=== PATIENT | male | born 1985 | race Caucasian/White ===

== ENCOUNTER 2019-10-09 22:30 | Emergency (ER) | payer OTHER ==
[2019-10-09] MEDS ORDERED: SODIUM CHLORIDE 0.9% 1,000 ML IV STA (23:09)
[2019-10-09] MEDS ORDERED: LABETALOL 5 MG/ML VIAL MDV IVP STA (23:12)
--- NOTE | 2019-10-09 23:12 | ED ---
Dizziness HPI - General Chief Complaint: Dizziness Stated Complaint: Dizziness Time Seen by Provider: 10/09/19 22:49 Source: patient, RN notes reviewed, old records reviewed Mode of arrival: ambulatory Limitations: no limitations - History of Present Illness Initial Comments: This is a 33-year-old male does admit to some mild increase in anxiety coming in with episodes of palpitations racing heart shortness of breath and near-syncope at home. Multiple events in the last 2 days. Currently patient is a symptomatically data available [facility]. No recent travel history sick contacts no change in medications denying drug throughout cough. 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 ROS Other: All systems not noted in ROS Statement are negative. Past Medical History Past Medical History: No Reported History History of Any Multi-Drug Resistant Organisms: None Reported Past Surgical History: No Surgical Hx Reported Past Psychological History: Anxiety Smoking Status: Never smoker Past Alcohol Use History: None Reported Past Drug Use History: Marijuana General Exam Limitations: no limitations General appearance: alert, in no apparent distress Head exam: Present: atraumatic, normocephalic, normal inspection Eye exam: Present: normal appearance, PERRL, EOMI. Absent: scleral icterus, conjunctival injection, periorbital swelling ENT exam: Present: normal exam, mucous membranes moist Neck exam: Present: normal inspection. Absent: tenderness, meningismus, lymphadenopathy Respiratory exam: Present: normal lung sounds bilaterally. Absent: respiratory distress, wheezes, rales, rhonchi, stridor Cardiovascular Exam: Present: regular rate, normal rhythm, normal heart sounds. Absent: systolic murmur, diastolic murmur, rubs, gallop, clicks GI/Abdominal exam: Present: soft, normal bowel sounds. Absent: distended, tenderness, guarding, rebound, rigid Extremities exam: Present: normal inspection, full ROM, normal capillary refill. Absent: tenderness, pedal edema, joint swelling, calf tenderness Back exam: Present: normal inspection Neurological exam: Present: alert, oriented X3, CN II-XII intact Psychiatric exam: Present: normal affect, normal mood Skin exam: Present: warm, dry, intact, normal color. Absent: rash Course Vital Signs 10/09/19 10/09/19 10/09/19 22:36 23:35 23:52 Temperature 97.9 F Pulse Rate 83 86 62 Respiratory 20 18 20 Rate Blood Pressure 197/112 169/97 115/75 O2 Sat by Pulse 99 100 97 Oximetry 10/10/19 00:30 Temperature Pulse Rate 75 Respiratory 20 Rate Blood Pressure 135/92 O2 Sat by Pulse 98 Oximetry EKG Findings - EKG Comments: EKG Findings:: EKG shows sinus a 72, NV 176, QRS 104, QTc 413 Medical Decision Making - Lab Data Result diagrams: 10/09/19 23:52 10/09/19 23:52 Lab Results 10/09/19 10/09/19 10/09/19 Range/Units 23:52 23:52 23:52 WBC 10.4 (3.8-10.6) k/uL RBC 4.84 (4.30-5.90) m/uL Hgb 14.3 (13.0-17.5) gm/dL Hct 40.8 (39.0-53.0) % MCV 84.3 (80.0-100.0) fL MCH 29.5 (25.0-35.0) pg MCHC 34.9 (31.0-37.0) g/dL RDW 11.8 (11.5-15.5) % Plt Count 202 (150-450) k/uL Neutrophils % 80 % Lymphocytes % 13 % Monocytes % 4 % Eosinophils % 0 % Basophils % 0 % Neutrophils # 8.4 H (1.3-7.7) k/uL Lymphocytes # 1.4 (1.0-4.8) k/uL Monocytes # 0.4 (0-1.0) k/uL Eosinophils # 0.0 (0-0.7) k/uL Basophils # 0.0 (0-0.2) k/uL PT (9.0-12.0) sec INR (<1.2) APTT (22.0-30.0) sec Sodium 138 (137-145) mmol/L Potassium 4.3 (3.5-5.1) mmol/L Chloride 101 (98-107) mmol/L Carbon Dioxide 27 (22-30) mmol/L Anion Gap 10 mmol/L BUN 14 (9-20) mg/dL Creatinine 0.92 (0.66-1.25) mg/dL Est GFR (CKD-EPI)AfAm >90 (>60 ml/min/1.73 sqM) Est GFR (CKD-EPI)NonAf >90 (>60 ml/min/1.73 sqM) Glucose 150 H (74-99) mg/dL Calcium 10.2 (8.4-10.2) mg/dL Phosphorus 2.7 (2.5-4.5) mg/dL Magnesium 1.9 (1.6-2.3) mg/dL Total Bilirubin 0.8 (0.2-1.3) mg/dL AST 114 H (17-59) U/L ALT 211 H (4-49) U/L Alkaline Phosphatase 99 (38-126) U/L Troponin I (0.000-0.034) ng/mL NT-Pro-B Natriuret Pep 32 pg/mL Total Protein 7.9 (6.3-8.2) g/dL Albumin 4.9 (3.5-5.0) g/dL TSH 3.090 (0.465-4.680) mIU/L 10/09/19 10/09/19 Range/Units 23:52 23:52 WBC (3.8-10.6) k/uL RBC (4.30-5.90) m/uL Hgb (13.0-17.5) gm/dL Hct (39.0-53.0) % MCV (80.0-100.0) fL MCH (25.0-35.0) pg MCHC (31.0-37.0) g/dL RDW (11.5-15.5) % Plt Count (150-450) k/uL Neutrophils % % Lymphocytes % % Monocytes % % Eosinophils % % Basophils % % Neutrophils # (1.3-7.7) k/uL Lymphocytes # (1.0-4.8) k/uL Monocytes # (0-1.0) k/uL Eosinophils # (0-0.7) k/uL Basophils # (0-0.2) k/uL PT 10.4 (9.0-12.0) sec INR 1.0 (<1.2) APTT 20.9 L (22.0-30.0) sec Sodium (137-145) mmol/L Potassium (3.5-5.1) mmol/L Chloride (98-107) mmol/L Carbon Dioxide (22-30) mmol/L Anion Gap mmol/L BUN (9-20) mg/dL Creatinine (0.66-1.25) mg/dL Est GFR (CKD-EPI)AfAm (>60 ml/min/1.73 sqM) Est GFR (CKD-EPI)NonAf (>60 ml/min/1.73 sqM) Glucose (74-99) mg/dL Calcium (8.4-10.2) mg/dL Phosphorus (2.5-4.5) mg/dL Magnesium (1.6-2.3) mg/dL Total Bilirubin (0.2-1.3) mg/dL AST (17-59) U/L ALT (4-49) U/L Alkaline Phosphatase (38-126) U/L Troponin I <0.012 (0.000-0.034) ng/mL NT-Pro-B Natriuret Pep pg/mL Total Protein (6.3-8.2) g/dL Albumin (3.5-5.0) g/dL TSH (0.465-4.680) mIU/L Disposition Clinical Impression: Anxiety, Near syncope, Palpitations Disposition: HOME SELF-CARE Condition: Good Instructions (If sedation given, give patient instructions): Dizziness (ED), Near Syncope (ED) Is patient prescribed a controlled substance at d/c from ED?: No Referrals: None,Stated [Primary Care Provider] - 1-2 days
[2019-10-10 00:08] LABS: Basophils % (A) 0 %; Eosinophils % (A) 0 %; HCT 40.8 % (39.0-53.0); HGB 14.3 gm/dL (13.0-17.5); Lymphocytes # (A) 1.4 k/uL (1.0-4.8); Lymphocytes % (A) 13 %; MCH 29.5 pg (25.0-35.0); MCHC 34.9 g/dL (31.0-37.0); MCV 84.3 fL (80.0-100.0); Mean Platelet Volume 8.1; Monocytes # (A) 0.4 k/uL (0-1.0); Monocytes % (A) 4 %; Neutrophils # (A) 8.4 k/uL (1.3-7.7); Neutrophils % (A) 80 %; Platelet Count 202 k/uL (150-450); RBC 4.84 m/uL (4.30-5.90); RDW 11.8 % (11.5-15.5); WBC 10.4 k/uL (3.8-10.6)
[2019-10-10 00:17] LABS: ALT 211 U/L (4-49); AST 114 U/L (17-59); African American GFR (CKD) >90 (>60 ml/min/1.73 sqM); Albumin 4.9 g/dL (3.5-5.0); Alkaline Phosphatase 99 U/L (38-126); Anion Gap 10 mmol/L; Blood Urea Nitrogen 14 mg/dL (9-20); Calcium 10.2 mg/dL (8.4-10.2); Carbon Dioxide 27 mmol/L (22-30); Chloride 101 mmol/L (98-107); Glucose 150 mg/dL (74-99); Magnesium 1.9 mg/dL (1.6-2.3); Non-African American GFR(CKD) >90 (>60 ml/min/1.73 sqM); Phosphorus 2.7 mg/dL (2.5-4.5); Potassium 4.3 mmol/L (3.5-5.1); Sodium 138 mmol/L (137-145); Total Bilirubin 0.8 mg/dL (0.2-1.3); Total Protein 7.9 g/dL (6.3-8.2)
[2019-10-10 00:23] LABS: Prothrombin Time 10.4 sec (9.0-12.0)
--- NOTE | 2019-10-10 00:45 | CT ---
EXAMINATION TYPE: CT angio chest DATE OF EXAM: 10/10/2019 COMPARISON: None HISTORY: Pain, R/O PE CT DLP: 749.70 mGycm Automated exposure control for dose reduction was used. CONTRAST: Performed with IV Contrast, patient injected with 100 mL of Isovue 370. Multiple axial sections were obtained from the thoracic inlet to the diaphragm with intravenous contr ast. There are 3-D post processed images. FINDINGS: Mediastinum is normal. Thoracic aorta is intact. There is no aneurysm or dissection. There are no hil ar masses. Heart size is normal. There is no pericardial effusion. There is no pleural effusion. The lungs are clear of consolidation. There is no evidence of a pulmonary mass. There is normal contrast opacification of the pulmonary arteries. There are no filling defects. The ribs appear intact. Thoracic spine is intact. Sternum is intact. IMPRESSION: Negative exam. No evidence of pulmonary embolism.
[2019-10-10 00:47] LABS: Partial Thromboplastin Time 20.9 sec (22.0-30.0)
--- NOTE | 2019-10-10 01:05 | CT ---
EXAMINATION TYPE: CT abdomen pelvis w con DATE OF EXAM: 10/10/2019 COMPARISON: None HISTORY: Abd Pain CT DLP: 1431.60 mGycm Automated exposure control for dose reduction was used. CONTRAST: Performed with IV Contrast, patient injected with 100 mL of Isovue 370. Lung bases are clear of consolidation. There is no pleural effusion. Heart size is normal. Liver spleen pancreas gallbladder appear normal. Bile ducts are not dilated. Stomach is intact. There is no adrenal mass. Kidneys show satisfactory contrast opacification. There is no hydronephrosis. Ur eters are not dilated. There is no retroperitoneal adenopathy. Bladder distends smoothly. There is no inguinal hernia. There is no free fluid in the pelvis. There is no sign of a bowel obstruction. Ther e is no mesenteric edema. There is no ascites or free air. There is some fatty infiltration of the ap pendix. I see no sign of appendicitis. Appendix measures 8 mm. There is no evidence of free air. Lumbar vertebra have fairly normal alignment. There is L5 spondylolysis with very minimal first-degre e L5-S1 spondylolisthesis. Bony pelvis appears intact. IMPRESSION: No sign of acute abdomen and pelvis. L5 spondylolysis with minimal spondylolisthesis.
[2019-10-10 01:27] LABS: Appearance,Urine Clear (Clear); Color,Urine Yellow; Protein,Urine Negative (Negative); Specific Gravity,Urine 1.005 (1.001-1.035)
[2019-10-10 01:28] LABS: Bilirubin,Urine Negative (Negative); Blood,Urine Negative (Negative); Glucose,Urine (UA) Negative (Negative); Ketones,Urine Negative (Negative); Leukocyte Esterase,Urine Negative (Negative); Nitrite,Urine Negative (Negative); Urobilinogen,Urine <2.0 mg/dL (<2.0)
[2019-10-10 01:38] VITALS: BP 147/90; PULSE 79; RESP 18; TEMP 97.5
== END 2019-10-10 01:39 | disposition home or self-care (01) ==
LOC: EC 22:30
DX: F41.9 Anxiety disorder, unspecified (principal); R55 Syncope and collapse; R00.2 Palpitations; R42 Dizziness and giddiness; Z53.8 Procedure and treatment not carried out for other reasons
CPT/HCPCS: 36415; 93005; 83880; 80053; 83735; 84100; 84443; 84484; 85025; 85610; 85730; 81003; 71275; 74177; 99285; 96360; 96361; Q9967

== ENCOUNTER 2019-11-12 22:22 | Emergency (ER) | payer OTHER ==
[2019-11-12 22:27] VITALS: TEMP 98
--- NOTE | 2019-11-12 22:43 | ED ---
General Adult HPI - General Chief complaint: Anxiety Stated complaint: Anxiety Time Seen by Provider: 11/12/19 22:32 Source: patient Mode of arrival: ambulatory Limitations: no limitations - History of Present Illness Initial comments: Patient presents the ED complaining of having intermittent rapid heart palpitations for the past couple of months. Patient states that he was recently seen in the hospital for these symptoms, and he was told that he may having anxiety. Patient states that his palpitations returned again earlier tonight, and so he decided to come to the ED. Patient states that he has also had associated lightheadedness. Patient admits to having mild palpitations currently, but he denies having any lightheadedness or dizziness currently. Patient denies having any pain, fever or chills, headache, focal neuro deficit, chest pain, dyspnea, cough or cold symptoms, syncope, nausea/vomiting/diaphoresis, abdominal pain, diarrhea, urinary symptoms, leg or calf swelling or pain, or any other symptoms or complaints. Patient admits to drinking "2 shots" of alcohol earlier today, and he also admits to smoking marijuana earlier today. Patient denies any other illicit drug use. - Related Data Allergies Allergy/AdvReac Type Severity Reaction Status Date / Time No Known Allergies Allergy Verified 11/12/19 22:23 Review of Systems ROS Statement: Those systems with pertinent positive or pertinent negative responses have been documented in the HPI. ROS Other: All systems not noted in ROS Statement are negative. Past Medical History Past Medical History: No Reported History History of Any Multi-Drug Resistant Organisms: None Reported Past Surgical History: No Surgical Hx Reported Past Psychological History: Anxiety Smoking Status: Never smoker Past Alcohol Use History: None Reported Past Drug Use History: Marijuana General Exam Limitations: no limitations General appearance: alert, in no apparent distress Head exam: Present: atraumatic, normocephalic Eye exam: Present: normal appearance, PERRL, EOMI ENT exam: Present: mucous membranes moist Neck exam: Present: other (Trachea is in midline) Respiratory exam: Present: normal lung sounds bilaterally. Absent: respiratory distress, wheezes, rales, rhonchi Cardiovascular Exam: Present: regular rate, normal rhythm, normal heart sounds, other (Normal radial pulses bilaterally) GI/Abdominal exam: Present: soft. Absent: distended, tenderness Extremities exam: Absent: tenderness, pedal edema, calf tenderness Neurological exam: Present: alert, oriented X3, CN II-XII intact. Absent: motor sensory deficit Psychiatric exam: Present: normal affect, normal mood Skin exam: Present: warm, dry, intact, normal color Course Vital Signs 11/12/19 11/12/19 11/12/19 22:23 22:58 23:00 Temperature 98 F Pulse Rate 101 H 69 71 Respiratory 18 20 Rate Blood Pressure 188/93 155/93 O2 Sat by Pulse 99 97 Oximetry 11/12/19 11/12/19 11/12/19 23:10 23:20 23:30 Temperature Pulse Rate 86 74 71 Respiratory Rate Blood Pressure 148/98 148/98 148/98 O2 Sat by Pulse 99 96 97 Oximetry 11/12/19 11/12/19 11/13/19 23:40 23:50 00:00 Temperature Pulse Rate 73 74 73 Respiratory Rate Blood Pressure 148/98 148/98 148/98 O2 Sat by Pulse 98 97 97 Oximetry - Reevaluation(s) Reevaluation #1: 11/13/19 01:01 Patient denies having any symptoms at this time. Patient remains in normal sinus rhythm on the line palletizer. Patient remains alert and breathing comfortably with a normal room air oxygen saturation. Patient is aware of his test results, and he feels comfortable going home at this time. EKG Findings - EKG Comments: EKG Findings:: Normal sinus rhythm, ventricular rate of 85 bpm, no ectopy, no rmal MI and QRS intervals, normal QT interval, normal axis, no ST or T-wave abnormality Medical Decision Making - Medical Decision Making Patient's labs, EKG and chest x-ray are fairly unremarkable. Patient's vital signs are reassuring. I do not suspect an emergent medical condition. Patient is aware of his test results, and he feels comfortable going home at this time. He was counseled about palpitations and dizziness. He was clearly explained return and follow-up instructions, and he feels comfortable with this plan. He was instructed to return to the ED should he develop any significant pain, a fever, chest pain, shortness of breath, feeling dizzy or faint, vomiting, or new or worsening symptoms. He was also instructed to follow up closely with his primary care provider. He feels comfortable with this plan. - Lab Data Result diagrams: 11/12/19 22:50 11/12/19 22:50 Lab Results 11/12/19 11/12/19 11/12/19 Range/Units 22:50 22:50 22:50 WBC 10.8 H (3.8-10.6) k/uL RBC 5.07 (4.30-5.90) m/uL Hgb 14.9 (13.0-17.5) gm/dL Hct 42.1 (39.0-53.0) % MCV 83.1 (80.0-100.0) fL MCH 29.4 (25.0-35.0) pg MCHC 35.3 (31.0-37.0) g/dL RDW 11.8 (11.5-15.5) % Plt Count 194 (150-450) k/uL Neutrophils % 71 % Lymphocytes % 21 % Monocytes % 6 % Eosinophils % 1 % Basophils % 0 % Neutrophils # 7.6 (1.3-7.7) k/uL Lymphocytes # 2.2 (1.0-4.8) k/uL Monocytes # 0.6 (0-1.0) k/uL Eosinophils # 0.1 (0-0.7) k/uL Basophils # 0.0 (0-0.2) k/uL Sodium 141 (137-145) mmol/L Potassium 3.3 L (3.5-5.1) mmol/L Chloride 100 (98-107) mmol/L Carbon Dioxide 26 (22-30) mmol/L Anion Gap 15 mmol/L BUN 10 (9-20) mg/dL Creatinine 0.97 (0.66-1.25) mg/dL Est GFR (CKD-EPI)AfAm >90 (>60 ml/min/1.73 sqM) Est GFR (CKD-EPI)NonAf >90 (>60 ml/min/1.73 sqM) Glucose 158 H (74-99) mg/dL Calcium 10.0 (8.4-10.2) mg/dL Magnesium 1.4 L (1.6-2.3) mg/dL Total Bilirubin 0.8 (0.2-1.3) mg/dL AST 73 H (17-59) U/L ALT 61 H (4-49) U/L Alkaline Phosphatase 98 (38-126) U/L Troponin I (0.000-0.034) ng/mL Total Protein 8.6 H (6.3-8.2) g/dL Albumin 5.2 H (3.5-5.0) g/dL TSH 4.250 (0.465-4.680) mIU/L Urine Opiates Screen Not Detected (NotDetected) Ur Oxycodone Screen Not Detected (NotDetected) Urine Methadone Screen Not Detected (NotDetected) Ur Propoxyphene Screen Not Detected (NotDetected) Ur Barbiturates Screen Not Detected (NotDetected) U Tricyclic Antidepress Not Detected (NotDetected) Ur Phencyclidine Scrn Not Detected (NotDetected) Ur Amphetamines Screen Not Detected (NotDetected) U Methamphetamines Scrn Not Detected (NotDetected) U Benzodiazepines Scrn Not Detected (NotDetected) Urine Cocaine Screen Not Detected (NotDetected) U Marijuana (THC) Screen Detected H (NotDetected) 11/12/19 Range/Units 22:50 WBC (3.8-10.6) k/uL RBC (4.30-5.90) m/uL Hgb (13.0-17.5) gm/dL Hct (39.0-53.0) % MCV (80.0-100.0) fL MCH (25.0-35.0) pg MCHC (31.0-37.0) g/dL RDW (11.5-15.5) % Plt Count (150-450) k/uL Neutrophils % % Lymphocytes % % Monocytes % % Eosinophils % % Basophils % % Neutrophils # (1.3-7.7) k/uL Lymphocytes # (1.0-4.8) k/uL Monocytes # (0-1.0) k/uL Eosinophils # (0-0.7) k/uL Basophils # (0-0.2) k/uL Sodium (137-145) mmol/L Potassium (3.5-5.1) mmol/L Chloride (98-107) mmol/L Carbon Dioxide (22-30) mmol/L Anion Gap mmol/L BUN (9-20) mg/dL Creatinine (0.66-1.25) mg/dL Est GFR (CKD-EPI)AfAm (>60 ml/min/1.73 sqM) Est GFR (CKD-EPI)NonAf (>60 ml/min/1.73 sqM) Glucose (74-99) mg/dL Calcium (8.4-10.2) mg/dL Magnesium (1.6-2.3) mg/dL Total Bilirubin (0.2-1.3) mg/dL AST (17-59) U/L ALT (4-49) U/L Alkaline Phosphatase (38-126) U/L Troponin I <0.012 (0.000-0.034) ng/mL Total Protein (6.3-8.2) g/dL Albumin (3.5-5.0) g/dL TSH (0.465-4.680) mIU/L Urine Opiates Screen (NotDetected) Ur Oxycodone Screen (NotDetected) Urine Methadone Screen (NotDetected) Ur Propoxyphene Screen (NotDetected) Ur Barbiturates Screen (NotDetected) U Tricyclic Antidepress (NotDetected) Ur Phencyclidine Scrn (NotDetected) Ur Amphetamines Screen (NotDetected) U Methamphetamines Scrn (NotDetected) U Benzodiazepines Scrn (NotDetected) Urine Cocaine Screen (NotDetected) U Marijuana (THC) Screen (NotDetected) - Radiology Data Radiology results: image reviewed (Chest x-ray is negative) Disposition Clinical Impression: Palpitations Disposition: HOME SELF-CARE Condition: Stable Instructions (If sedation given, give patient instructions): Heart Palpitations (ED), Lightheadedness (ED) Additional Instructions: Return to the ER immediately should you develop any significant pain, a fever, chest pain, shortness of breath, feeling dizzy or faint, vomiting, or new or worsening symptoms. Follow up closely with your primary care provider. Is patient prescribed a controlled substance at d/c from ED?: No Referrals: None,Stated [Primary Care Provider] - 1-2 days Nisreen Borges MD [REFERRING] - 1-2 days Time of Disposition: 01:06
[2019-11-12 23:03] VITALS: RESP 20
[2019-11-12 23:16] LABS: Basophils % (A) 0 %; Eosinophils # (A) 0.1 k/uL (0-0.7); Eosinophils % (A) 1 %; HCT 42.1 % (39.0-53.0); HGB 14.9 gm/dL (13.0-17.5); Lymphocytes # (A) 2.2 k/uL (1.0-4.8); Lymphocytes % (A) 21 %; MCH 29.4 pg (25.0-35.0); MCHC 35.3 g/dL (31.0-37.0); MCV 83.1 fL (80.0-100.0); Mean Platelet Volume 7.8; Monocytes # (A) 0.6 k/uL (0-1.0); Monocytes % (A) 6 %; Neutrophils # (A) 7.6 k/uL (1.3-7.7); Neutrophils % (A) 71 %; Platelet Count 194 k/uL (150-450); RBC 5.07 m/uL (4.30-5.90); RDW 11.8 % (11.5-15.5); WBC 10.8 k/uL (3.8-10.6)
[2019-11-12 23:27] LABS: ALT 61 U/L (4-49); AST 73 U/L (17-59); African American GFR (CKD) >90 (>60 ml/min/1.73 sqM); Albumin 5.2 g/dL (3.5-5.0); Alkaline Phosphatase 98 U/L (38-126); Anion Gap 15 mmol/L; Blood Urea Nitrogen 10 mg/dL (9-20); Carbon Dioxide 26 mmol/L (22-30); Chloride 100 mmol/L (98-107); Glucose 158 mg/dL (74-99); Magnesium 1.4 mg/dL (1.6-2.3); Non-African American GFR(CKD) >90 (>60 ml/min/1.73 sqM); Potassium 3.3 mmol/L (3.5-5.1); Sodium 141 mmol/L (137-145); Total Bilirubin 0.8 mg/dL (0.2-1.3); Total Protein 8.6 g/dL (6.3-8.2)
[2019-11-12 23:37] LABS: Amphetamine Screen,Urine Not Detected (NotDetected); Barbiturate Screen,Urine Not Detected (NotDetected); Benzodiazepines Screen,Urine Not Detected (NotDetected); Cocaine Screen,Urine Not Detected (NotDetected); Methadone Screen, Urine Not Detected (NotDetected); Opiate Screen,Urine Not Detected (NotDetected); Oxycodone Screen, Urine Not Detected (NotDetected); Phencyclidine Screen,Urine Not Detected (NotDetected); Tricyclic Antidepressant,Urine Not Detected (NotDetected); Urn Cannabinoid Scrn Detected (NotDetected)
[2019-11-13 01:04] VITALS: BP 151/95; PULSE 83
--- NOTE | 2019-11-13 01:21 | XR ---
EXAMINATION TYPE: XR chest 2V DATE OF EXAM: 11/13/2019 COMPARISON: NONE HISTORY: palpitations TECHNIQUE: FINDINGS: heart and mediastinum normal. Lungs clear. Diaphragm normal. IMPRESSION: Normal chest.
== END 2019-11-13 01:17 | disposition home or self-care (01) ==
LOC: EC 22:22
DX: R00.2 Palpitations (principal); R42 Dizziness and giddiness
CPT/HCPCS: 36415; 71046; 80053; 80306; 83735; 84443; 84484; 85025; 99284

== ENCOUNTER 2021-12-25 18:40 | Emergency (ER) | payer OTHER ==
[2021-12-25 19:02] VITALS: TEMP 98.6
[2021-12-25] MEDS ORDERED: SODIUM CHLORIDE 0.9% 1,000 ML IV ONE (19:45)
[2021-12-25] MEDS ORDERED: LABETALOL SYRINGE 5 MG/ML IVP STA (19:46)
--- NOTE | 2021-12-25 19:51 | ED ---
General Adult HPI - General Chief complaint: Arrhythmia/Palpitations Stated complaint: palpitations Time Seen by Provider: 12/25/21 19:37 Source: patient, RN notes reviewed Mode of arrival: ambulatory Limitations: no limitations - History of Present Illness Initial comments: This is a pleasant 36-year-old male comes back to the ER for recurrent palpitations and intermittent lightheadedness which she's had for the past few months. Patient has been seen several times for this. Patient states that symptoms seem to be worse today. Patient states he had some lightheadedness. His blood pressures also been labile. Patient has yet have a primary care physician. Patient admits to drinking about a fifth of alcohol yesterday. He states he did this to calm his symptoms. Patient also took one of his aunts lorazepam tablets. Patient admits to smoking marijuana but denies any other illicit drug abuse. Patient is also taking a stimulant medication/supplement which she states is supposed to give him focus energy. Patient admits to occa sionally drinking and he drinks and caffeine as well. Patient denies any chest pain. Complaining of palpitations. No headache, no fever or chills, no changes in vision or hearing, no sore throat or difficulty with speech, no neck pain, no chest pain or shortness of breath, no abdominal pain, no nausea or vomiting, no changes in urination or bowel movements, no numbness or tingling, no extremity pain, no skin rashes or lesions. - Related Data Previous Rx's Medication Instructions Recorded Metoprolol Tartrate [Lopressor] 12.5 mg PO BID 30 Days #60 tablet 12/25/21 Allergies Allergy/AdvReac Type Severity Reaction Status Date / Time No Known Allergies Allergy Verified 12/25/21 19:03 Review of Systems ROS Statement: Those systems with pertinent positive or pertinent negative responses have been documented in the HPI. ROS Other: All systems not noted in ROS Statement are negative. Past Medical History Past Medical History: No Reported History History of Any Multi-Drug Resistant Organisms: None Reported Past Surgical History: No Surgical Hx Reported Past Psychological History: Anxiety Smoking Status: Never smoker Past Alcohol Use History: None Reported Past Drug Use History: Marijuana General Exam Limitations: no limitations General appearance: alert, in no apparent distress Head exam: Present: atraumatic, normocephalic, normal inspection Eye exam: Present: normal appearance, PERRL, EOMI. Absent: scleral icterus, conjunctival injection, periorbital swelling ENT exam: Present: normal exam, normal oropharynx, mucous membranes dry, mucous membranes moist Neck exam: Present: normal inspection. Absent: tenderness, meningismus, lymphadenopathy Respiratory exam: Present: normal lung sounds bilaterally. Absent: respiratory distress, wheezes, rales, rhonchi, stridor Cardiovascular Exam: Present: regular rate, normal rhythm, normal heart sounds. Absent: systolic murmur, diastolic murmur, rubs, gallop, clicks GI/Abdominal exam: Present: soft, normal bowel sounds. Absent: distended, tenderness, guarding, rebound, rigid Extremities exam: Present: normal inspection, full ROM, normal capillary refill. Absent: tenderness, pedal edema, joint swelling, calf tenderness Back exam: Present: normal inspection, rash noted. Absent: full ROM, tenderness, paraspinal tenderness Neurological exam: Present: alert, oriented X3, CN II-XII intact. Absent: normal gait, abnormal gait, reflexes normal Psychiatric exam: Present: normal affect, normal mood, anxious. Absent: depres sed, agitated, flat affect, manic, homicidal ideation Skin exam: Present: warm, dry, intact, normal color. Absent: rash Course Vital Signs 12/25/21 12/25/21 19:00 21:23 Temperature 98.6 F Pulse Rate 102 H 78 Respiratory 18 16 Rate Blood Pressure 181/105 152/105 O2 Sat by Pulse 99 100 Oximetry - Reevaluation(s) Reevaluation #1: 12/25/21 21:48 Medical record is reviewed Symptoms are improved here in the emergency department Patient is informed of results and questions answered Patient in no distress EKG Findings - EKG Comments: EKG Findings:: EKG 1917. ED attending physician reveals sinus rhythm with evidence of moderate interventricular conduction delay with a QRS duration of 113 ms. Other intervals are normal. Normal axis. No acute ST or T-wave changes. When compared to the previous study from October 2019, there is no significant change. Medical Decision Making - Medical Decision Making Patient presenting with recurrent palpitations. Patient admits to drinking a fifth of alcohol yesterday. This does raise a suspicion of possible holiday heart syndrome related to binge drinking. Patient's palpitations are recurrent and were related to alcohol use last time as well as I reviewed the chart. Patient presents with recurrent palpitations, recurrent hypertension the patient admits to binge alcohol drinking. Had a long discussion with patient regarding avoidance of alcohol binge drinking as well as increased caffeine use. I'm going to place the patient on a low-dose beta javier and given follow-up with a primary care physician. Patient counseled on treatment plan. Patient voiced understanding. He concurs with this plan. All questions answered. Patient was told to return to the ER for any signs or symptoms worsen. Told to return immediately if any other problems arise. All questions answered. Treatment plan discussed. Patient in agreement Every effort has been made to ensure accuracy of this dictation. However, due to the limitations of electronic medical records and dictation devices, errors in charting still occur. Supervising physicians Dr. Guardado - Lab Data Result diagrams: 12/25/21 19:56 12/25/21 19:56 Lab Results 12/25/21 12/25/21 12/25/21 Range/Units 19:56 19:56 19:56 WBC 8.5 (3.8-10.6) k/uL RBC 5.21 (4.30-5.90) m/uL Hgb 15.8 (13.0-17.5) gm/dL Hct 45.1 (39.0-53.0) % MCV 86.7 (80.0-100.0) fL MCH 30.4 (25.0-35.0) pg MCHC 35.1 (31.0-37.0) g/dL RDW 12.6 (11.5-15.5) % Plt Count 233 (150-450) k/uL MPV 7.9 Neutrophils % 70 % Lymphocytes % 21 % Monocytes % 6 % Eosinophils % 0 % Basophils % 0 % Neutrophils # 5.9 (1.3-7.7) k/uL Lymphocytes # 1.8 (1.0-4.8) k/uL Monocytes # 0.5 (0-1.0) k/uL Eosinophils # 0.0 (0-0.7) k/uL Basophils # 0.0 (0-0.2) k/uL PT (9.0-12.0) sec INR (<1.2) APTT (22.0-30.0) sec Sodium 141 (137-145) mmol/L Potassium 4.3 (3.5-5.1) mmol/L Chloride 105 (98-107) mmol/L Carbon Dioxide 21 L (22-30) mmol/L Anion Gap 15 mmol/L BUN 10 (9-20) mg/dL Creatinine 0.88 (0.66-1.25) mg/dL Est GFR (CKD-EPI)AfAm >90 (>60 ml/min/1.73 sqM) Est GFR (CKD-EPI)NonAf >90 (>60 ml/min/1.73 sqM) Glucose 130 H (74-99) mg/dL Calcium 9.8 (8.4-10.2) mg/dL Magnesium 1.6 (1.6-2.3) mg/dL Total Bilirubin 1.1 (0.2-1.3) mg/dL AST 66 H (17-59) U/L ALT 56 H (4-49) U/L Alkaline Phosphatase 83 (38-126) U/L Troponin I <0.012 (0.000-0.034) ng/mL Total Protein 9.3 H (6.3-8.2) g/dL Albumin 5.3 H (3.5-5.0) g/dL TSH 2.030 (0.465-4.680) mIU/L Urine Opiates Screen (NotDetected) Ur Oxycodone Screen (NotDetected) Urine Methadone Screen (NotDetected) Ur Propoxyphene Screen (NotDetected) Ur Barbiturates Screen (NotDetected) U Tricyclic Antidepress (NotDetected) Ur Phencyclidine Scrn (NotDetected) Ur Amphetamines Screen (NotDetected) U Methamphetamines Scrn (NotDetected) U Benzodiazepines Scrn (NotDetected) Urine Cocaine Screen (NotDetected) U Marijuana (THC) Screen (NotDetected) 12/25/21 12/25/21 Range/Units 21:12 21:15 WBC (3.8-10.6) k/uL RBC (4.30-5.90) m/uL Hgb (13.0-17.5) gm/dL Hct (39.0-53.0) % MCV (80.0-100.0) fL MCH (25.0-35.0) pg MCHC (31.0-37.0) g/dL RDW (11.5-15.5) % Plt Count (150-450) k/uL MPV Neutrophils % % Lymphocytes % % Monocytes % % Eosinophils % % Basophils % % Neutrophils # (1.3-7.7) k/uL Lymphocytes # (1.0-4.8) k/uL Monocytes # (0-1.0) k/uL Eosinophils # (0-0.7) k/uL Basophils # (0-0.2) k/uL PT 11.5 (9.0-12.0) sec INR 1.1 (<1.2) APTT 21.2 L (22.0-30.0) sec Sodium (137-145) mmol/L Potassium (3.5-5.1) mmol/L Chloride (98-107) mmol/L Carbon Dioxide (22-30) mmol/L Anion Gap mmol/L BUN (9-20) mg/dL Creatinine (0.66-1.25) mg/dL Est GFR (CKD-EPI)AfAm (>60 ml/min/1.73 sqM) Est GFR (CKD-EPI)NonAf (>60 ml/min/1.73 sqM) Glucose (74-99) mg/dL Calcium (8.4-10.2) mg/dL Magnesium (1.6-2.3) mg/dL Total Bilirubin (0.2-1.3) mg/dL AST (17-59) U/L ALT (4-49) U/L Alkaline Phosphatase (38-126) U/L Troponin I (0.000-0.034) ng/mL Total Protein (6.3-8.2) g/dL Albumin (3.5-5.0) g/dL TSH (0.465-4.680) mIU/L Urine Opiates Screen Not Detected (NotDetected) Ur Oxycodone Screen Not Detected (NotDetected) Urine Methadone Screen Not Detected (NotDetected) Ur Propoxyphene Screen Not Detected (NotDetected) Ur Barbiturates Screen Not Detected (NotDetected) U Tricyclic Antidepress Not Detected (NotDetected) Ur Phencyclidine Scrn Not Detected (NotDetected) Ur Amphetamines Screen Not Detected (NotDetected) U Methamphetamines Scrn Not Detected (NotDetected) U Benzodiazepines Scrn Detected H (NotDetected) Urine Cocaine Screen Not Detected (NotDetected) U Marijuana (THC) Screen Detected H (NotDetected) Disposition Clinical Impression: Palpitations, Hypertension, Episode of binge consumption of alcohol Disposition: HOME SELF-CARE Condition: Good Instructions (If sedation given, give patient instructions): Heart Palpitations (ED), Hypertension (ED) Additional Instructions: Follow-up with your regular physician as directed. Return to the ER immediately if any symptoms worsen, new symptoms arise, or any other problems develop. Call tomorrow morning at 8 or 9 AM to schedule the follow-up appointment Is patient prescribed a controlled substance at d/c from ED?: No Referrals: Maurizio Andres [STAFF PHYSICIAN] - 12/27/21 Time of Disposition: 21:51
[2021-12-25 20:14] LABS: ALT 56 U/L (4-49); AST 66 U/L (17-59); African American GFR (CKD) >90 (>60 ml/min/1.73 sqM); Albumin 5.3 g/dL (3.5-5.0); Alkaline Phosphatase 83 U/L (38-126); Anion Gap 15 mmol/L; Blood Urea Nitrogen 10 mg/dL (9-20); Calcium 9.8 mg/dL (8.4-10.2); Carbon Dioxide 21 mmol/L (22-30); Chloride 105 mmol/L (98-107); Glucose 130 mg/dL (74-99); Magnesium 1.6 mg/dL (1.6-2.3); Non-African American GFR(CKD) >90 (>60 ml/min/1.73 sqM); Sodium 141 mmol/L (137-145); Total Bilirubin 1.1 mg/dL (0.2-1.3); Total Protein 9.3 g/dL (6.3-8.2)
[2021-12-25 20:15] LABS: Potassium 4.3 mmol/L (3.5-5.1)
[2021-12-25 20:35] LABS: Basophils % (A) 0 %; Eosinophils % (A) 0 %; HCT 45.1 % (39.0-53.0); HGB 15.8 gm/dL (13.0-17.5); Lymphocytes # (A) 1.8 k/uL (1.0-4.8); Lymphocytes % (A) 21 %; MCH 30.4 pg (25.0-35.0); MCHC 35.1 g/dL (31.0-37.0); MCV 86.7 fL (80.0-100.0); Mean Platelet Volume 7.9; Monocytes # (A) 0.5 k/uL (0-1.0); Monocytes % (A) 6 %; Neutrophils # (A) 5.9 k/uL (1.3-7.7); Neutrophils % (A) 70 %; Platelet Count 233 k/uL (150-450); RBC 5.21 m/uL (4.30-5.90); RDW 12.6 % (11.5-15.5); WBC 8.5 k/uL (3.8-10.6)
--- NOTE | 2021-12-25 20:38 | XR ---
EXAMINATION TYPE: XR chest 2V DATE OF EXAM: 12/25/2021 COMPARISON: 11/13/2019 INDICATION: Dysrhythmia TECHNIQUE: Frontal and lateral views of the chest are obtained FINDINGS: The heart size is normal. The pulmonary vasculature is normal. The lungs are clear. IMPRESSION: 1. No acute pulmonary process.
[2021-12-25 21:24] VITALS: BP 152/105; PULSE 78; RESP 16
[2021-12-25 21:44] LABS: INR 1.1 (<1.2); Prothrombin Time 11.5 sec (9.0-12.0)
[2021-12-25 21:46] LABS: Partial Thromboplastin Time 21.2 sec (22.0-30.0)
[2021-12-25 21:47] LABS: Amphetamine Screen,Urine Not Detected (NotDetected); Barbiturate Screen,Urine Not Detected (NotDetected); Benzodiazepines Screen,Urine Detected (NotDetected); Cocaine Screen,Urine Not Detected (NotDetected); Methadone Screen, Urine Not Detected (NotDetected); Opiate Screen,Urine Not Detected (NotDetected); Oxycodone Screen, Urine Not Detected (NotDetected); Phencyclidine Screen,Urine Not Detected (NotDetected); Tricyclic Antidepressant,Urine Not Detected (NotDetected); Urn Cannabinoid Scrn Detected (NotDetected)
== END 2021-12-25 21:59 | disposition home or self-care (01) ==
LOC: EC 18:40
DX: R00.2 Palpitations (principal); I10 Essential (primary) hypertension; R42 Dizziness and giddiness; Z72.89 Other problems related to lifestyle
CPT/HCPCS: 36415; 71046; 80053; 80306; 83735; 84443; 84484; 85025; 85610; 85730; 93005; 96374; 99285

== ENCOUNTER 2024-01-28 13:16 | Emergency (ER) | payer OTHER ==
[2024-01-28 13:43] VITALS: TEMP 98.1
[2024-01-28 13:53] VITALS: RESP 18
[2024-01-28] MEDS: FAMOTIDINE 20 MG TAB PO STA (14:15)
[2024-01-28] MEDS: methylPREDNISolone SOD SUCCI 125 MG/2 ML VIAL IM ONE (14:15)
--- NOTE | 2024-01-28 14:16 | ED ---
Allergic Reaction HPI - General Chief complaint: Allergic Reaction Stated complaint: Bee sting-Allergic Rxn Time Seen by Provider: 01/28/24 13:47 Source: patient, RN notes reviewed Mode of arrival: ambulatory Limitations: no limitations - History of Present Illness Initial Comments: This is a 38-year-old male who presents to the emergency department for an allergic reaction. Patient states that he was stung by a bee in the right thumb about an hour prior to arrival. He has since started to develop hives to his arms, legs, torso, and face. States that this is itchy when he tries to touch it. Denies any respiratory issues. 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 Does not carry an EpiPen. He did take 50 mg of Benadryl shortly before arrival. MD Complaint: allergic reaction, hives - Related Data Previous Rx's Medication Instructions Recorded Metoprolol Tartrate [Lopressor] 12.5 mg PO BID 30 Days #60 tablet 12/25/21 EPINEPHrine (Auto Inject) [Epipen] 0.3 mg IM ONCE PRN #2 each 01/28/24 Famotidine 40 mg PO DAILY 7 Days #7 tablet 01/28/24 Triamcinolone 0.5% Cream [Kenalog 1 applic TOPICAL QID PRN #30 gm 01/28/24 0.5% Cream] predniSONE 50 mg PO DAILY 5 Days #5 tab 01/28/24 Allergies Allergy/AdvReac Type Severity Reaction Status Date / Time bee venom protein (honey bee) Allergy Swelling Verified 01/28/24 13:43 Review of Systems ROS Statement: Those systems with pertinent positive or pertinent negative responses have been documented in the HPI. ROS Other: All systems not noted in ROS Statement are negative. Past Medical History Past Medical History: No Reported History History of Any Multi-Drug Resistant Organisms: None Reported Past Surgical History: No Surgical Hx Reported Past Psychological History: Anxiety Smoking Status: Never smoker Past Alcohol Use History: None Reported Past Drug Use History: Marijuana General Exam Limitations: no limitations General appearance: alert, in no apparent distress Head exam: Present: atraumatic, normocephalic, normal inspection Respiratory exam: Present: normal lung sounds bilaterally. Absent: respiratory distress, wheezes, rales, rhonchi, stridor Cardiovascular Exam: Present: regular rate, normal rhythm, normal heart sounds. Absent: systolic murmur, diastolic murmur, rubs, gallop, clicks Neurological exam: Present: alert, oriented X3, CN II-XII intact Psychiatric exam: Present: normal affect, normal mood Skin exam: Present: other (Urticaria to the bilateral upper and lower extremities, face, and trunk.) Course Vital Signs 01/28/24 01/28/24 01/28/24 13:41 13:49 14:40 Temperature 98.1 F Pulse Rate 118 H 94 Respiratory 20 18 18 Rate Blood Pressure 120/72 126/81 O2 Sat by Pulse 98 99 Oximetry 01/28/24 15:09 Temperature 98.1 F Pulse Rate 96 Respiratory 18 Rate Blood Pressure 132/68 O2 Sat by Pulse 97 Oximetry Medical Decision Making - Medical Decision Making This is a 38 year old male who presents to the emergency department for an allergic reaction. Was pt. sent in by a medical professional or institution? @ -No Did you speak to anyone other than the patient for history? @ -No Did you review nursing and triage notes? @ -Yes, and I agree, it is accurate with regards to the patient's symptoms. Were old charts reviewed? @ -No Differential Diagnosis? @ -Differential Hives: Allergic reaction, cellulitis, burn, this is not meant to be an all-inclusive list. EKG interpreted by me (3pts min.)? @ -Not obtained X-rays interpreted by me (1pt min.)? @ -Not obtained CT interpreted by me (1pt min.)? @ -Not obtained U/S interpreted by me (1pt. min.)? @ -Not obtained What testing was considered but not performed? (CT, X-rays, U/S, labs)? Why? @ -None What meds were considered but not given? Why? @ -None Did you discuss the management of the patient with other professionals? @ -No Did you reconcile home meds? @ -No Was smoking cessation discussed for >3mins.? @ -No Was critical care preformed (if so, how long)? @ -No Were there social determinants of health that impacted care today? How? (Homelessness, low income, unemployed, alcoholism, drug addiction, transportation, low edu. Level, literacy, decrease access to med. care, [facility], rehab)? @ -No Was there de-escalation of care discussed even if they declined? (Discuss DNR or withdrawal of care, Hospice)? @ -No What co-morbidities impacted this encounter? (DM, HTN, Smoking, COPD, CAD, Cancer, CVA, Hep., AIDS, mental health diagnosis, sleep apnea, morbid obesity)? @ -None Was patient admitted / discharged? @ -Discharged. Physical examination demonstrates a large amount of urticaria. He had just taken 50 mg of Benadryl and was given 125 mg of Solu-Medrol and 40 mg of famotidine in the emergency department. He did start to have improvement in symptoms. He did not exhibit any respiratory distress. Prescription for prednisone, famotidine, and triamcinolone cream provided with dosing instructions reviewed. Advised continuing with an [id number] antihistamine as well. I did send in a prescription for an EpiPen in the event he has another potentially more severe reaction in the future. Undiagnosed new problem with uncertain prognosis? @ -None Drug Therapy requiring intensive monitoring for toxicity (Heparin, Nitro, Insulin, Cardizem)? @ -None Were any procedures done? @ -None Diagnosis/symptom? @ -Allergic reaction to bee sting Acute, or Chronic, or Acute on Chronic? @ -Acute Uncomplicated (without systemic symptoms) or Complicated (systemic symptoms)? @ -Uncomplicated Side effects of treatment? @ -None Exacerbation, Progression, or Severe Exacerbation] @ -Not applicable Poses a threat to life or bodily function? @ -No Return precautions reviewed in depth, the patient is instructed to return to the emergency department with any new, worsening, or concerning symptoms. Patient verbalized understanding. This case was discussed in detail with the attending ED physician, Dr. Candelaria. Presentation, findings, and treatment plan discussed in detail as well. Disposition Clinical Impression: Allergic reaction to bee sting Disposition: HOME SELF-CARE Instructions (If sedation given, give patient instructions): Urticaria (ED) Additional Instructions: Return to the emergency department with any new, worsening, or concerning symptoms. Take the prednisone daily for 5 days. Take the famotidine daily for 7 days. Continue to take Benadryl or another antihistamine as well. You can apply the triamcinolone cream up to 4 times daily to help with itching. Do not apply this to the face. Keep the EpiPen with you in the event this happens again and were to cause worsening symptoms. Follow up with your primary care provider in 1-2 days. Prescriptions: EPINEPHrine (Auto Inject) [Epipen] 0.3 mg IM ONCE PRN #2 each PRN Reason: Anaphylaxis Famotidine 40 mg PO DAILY 7 Days #7 tablet Triamcinolone 0.5% Cream [Kenalog 0.5% Cream] 1 applic TOPICAL QID PRN #30 gm PRN Reason: Itching predniSONE 50 mg PO DAILY 5 Days #5 tab Is patient prescribed a controlled substance at d/c from ED?: No Referrals: None,Stated [Primary Care Provider] - 1-2 days Time of Disposition: 14:48
[2024-01-28 15:13] VITALS: BP 132/68; PULSE 96
== END 2024-01-28 15:13 | disposition home or self-care (01) ==
LOC: EC 13:16
DX: T63.441A Toxic effect of venom of bees, accidental (unintentional), initial encounter (principal); F12.90 Cannabis use, unspecified, uncomplicated; Z91.030 Bee allergy status
CPT/HCPCS: 99283; 96372; J2919